=== PATIENT | male | born 1995 | race Caucasian/White ===

== ENCOUNTER 2018-07-27 19:01 | Emergency (ER) | payer SELFPAY ==
[~2018-07-27] VITALS: Ht 175.3 cm; Wt 86.2 kg
--- NOTE | 2018-07-27 19:40 | NUR ---
Patient discharged to home in stable conditon. Written and verbal after care instructions given. Patient verbalizes understanding of instructions.
[2018-07-27 19:42] VITALS: BP 122/74
== END 2018-07-27 19:43 | disposition home or self-care (01) ==
LOC: ER 19:03
DX: F32.9 Major depressive disorder, single episode, unspecified (principal); Z76.0 Encounter for issue of repeat prescription
CPT/HCPCS: A4663